=== PATIENT | female | born 1980 | race Caucasian/White ===

== ENCOUNTER 2019-11-03 09:20 | Inpatient (IN) | payer BC ==
[2019-11-03] MEDS ORDERED: SODIUM CHLORIDE 0.9% 500 ML 500 ML IV STA (09:42)
--- NOTE | 2019-11-03 09:46 | ED ---
General Adult HPI - General Chief complaint: Arrhythmia/Palpitations Stated complaint: palpitations Time Seen by Provider: 11/03/19 09:25 Source: patient, RN notes reviewed, old records reviewed Mode of arrival: ambulatory Limitations: no limitations - History of Present Illness Initial comments: This is a 39-year-old female who presents emergency department with past medical history significant for sick sinus syndrome possibly some atrial fibrillation and a pacemaker in place. Patient states last night she started waking up realizing her heart rate was in the 130s to 140s. Patient states range and she felt short of breath and couldn't feel her chest pounding. Patient states currently she is asymptomatic. Patient denies any headache patient denies numbness weakness. Patient denies lightheadedness or dizziness. Patient denies any abdominal pain patient denies nausea vomiting diarrhea. Patient denies any chest pain whatsoever she can just feel her heart racing. - Related Data Home Medications Medication Instructions Recorded Confirmed Aspirin EC [Ecotrin Low Dose] 81 mg PO HS 11/03/19 11/03/19 Cholecalciferol [Vitamin D3 (25 1,000 unit PO HS 11/03/19 11/03/19 Mcg = 1000 Iu)] Losartan [Cozaar] 50 mg PO HS 11/03/19 11/03/19 Multivitamins, Thera [Multivitamin 1 tab PO HS 11/03/19 11/03/19 (formulary)] Spironolactone 50 mg PO HS 11/03/19 11/03/19 Zolpidem [Ambien] 10 mg PO HS PRN 11/03/19 11/03/19 estradioL [Divigel] 1 packet TRANSDERM HS 11/03/19 11/03/19 Allergies Allergy/AdvReac Type Severity Reaction Status Date / Time Iodinated Contrast Media Allergy Anaphylaxis Verified 11/03/19 10:41 Review of Systems ROS Statement: Those systems with pertinent positive or pertinent negative responses have been documented in the HPI. ROS Other: All systems not noted in ROS Statement are negative. Past Medical History Past Medical History: Chest Pain / Angina, Hypertension Additional Past Medical History / Comment(s): sick sinus syndrome History of Any Multi-Drug Resistant Organisms: None Reported Past Surgical History: Appendectomy, Cholecystectomy, Hysterectomy, Pacemaker Additional Past Surgical History / Comment(s): HEART Ablation Past Psychological History: No Psychological Hx Reported Smoking Status: Never smoker Past Alcohol Use History: None Reported Past Drug Use History: None Reported General Exam - General Exam Comments Initial Comments: GENERAL: Patient is well-developed and well-nourished. Patient is nontoxic and well- hydrated and is in mild distress. ENT: Neck is soft and supple. No significant lymphadenopathy is noted. Oropharynx i s clear. Moist mucous membranes. Neck has full range of motion without eliciting any pain. EYES: The sclera were anicteric and conjunctiva were pink and moist. Extraocular movements were intact and pupils were equal round and reactive to light. Eyelids were unremarkable. PULMONARY: Unlabored respirations. Good breath sounds bilaterally. No audible rales rhonchi or wheezing was noted. CARDIOVASCULAR: There is a regular rate and rhythm without any murmurs gallops or rubs. ABDOMEN: Soft and nontender with normal bowel sounds. SKIN: Skin is clear with no lesions or rashes and otherwise unremarkable. NEUROLOGIC: Patient is alert and oriented x3. Cranial nerves II through XII are grossly intact. Motor and sensory are also intact. Normal speech, volume and content. Symmetrical smile. MUSCULOSKELETAL: Normal extremities with adequate strength and full range of motion. No lower extremity swelling or edema. No calf tenderness. LYMPHATICS: No significant lymphadenopathy is noted PSYCHIATRIC: Normal psychiatric evaluation. 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 Patient's EKG shows no ST segment elevation or depre ssion. Repeat EKG was done with the patient's heart rate went up to 140. EKG showed atrial fibrillation at a rate of 130 bpm QRS is 70 QT interval 288 QTC is 436 per patient's EKG shows no ST segment elevation or depression. Chest x-ray shows no acute abnormality. I attempted to call her senior management consultant Dr. Domenic greer at [facility] but we got no response. At this point time the patient did agree to be admitted to the hospital. Patient was placed on a Cardizem drip after Cardizem bolus. Patient was also given heparin. I spoke with Dr. Kelly he agreed to admit her admitted I wrote admitting orders and I continue the heparin and Cardizem on the floor - Lab Data Result diagrams: 11/03/19 09:58 11/03/19 09:58 Lab Results 11/03/19 11/03/19 11/03/19 Range/Units 09:58 09:58 09:58 WBC 9.2 (3.8-10.6) k/uL RBC 5.70 H (3.80-5.40) m/uL Hgb 15.7 (11.4-16.0) gm/dL Hct 46.2 H (34.0-46.0) % MCV 80.9 (80.0-100.0) fL MCH 27.5 (25.0-35.0) pg MCHC 34.0 (31.0-37.0) g/dL RDW 13.5 (11.5-15.5) % Plt Count 271 (150-450) k/uL Neutrophils % 66 % Lymphocytes % 25 % Monocytes % 4 % Eosinophils % 3 % Basophils % 1 % Neutrophils # 6.1 (1.3-7.7) k/uL Lymphocytes # 2.3 (1.0-4.8) k/uL Monocytes # 0.4 (0-1.0) k/uL Eosinophils # 0.3 (0-0.7) k/uL Basophils # 0.1 (0-0.2) k/uL PT 9.8 (9.0-12.0) sec INR 0.9 (<1.2) APTT 25.9 (22.0-30.0) sec Sodium 140 (137-145) mmol/L Potassium 4.2 (3.5-5.1) mmol/L Chloride 104 (98-107) mmol/L Carbon Dioxide 26 (22-30) mmol/L Anion Gap 10 mmol/L BUN 11 (7-17) mg/dL Creatinine 0.74 (0.52-1.04) mg/dL Est GFR (CKD-EPI)AfAm >90 (>60 ml/min/1.73 sqM) Est GFR (CKD-EPI)NonAf >90 (>60 ml/min/1.73 sqM) Glucose 115 H (74-99) mg/dL Calcium 9.9 (8.4-10.2) mg/dL Magnesium 2.0 (1.6-2.3) mg/dL Total Bilirubin 0.8 (0.2-1.3) mg/dL AST 37 H (14-36) U/L ALT 36 H (4-34) U/L Alkaline Phosphatase 74 (38-126) U/L Troponin I (0.000-0.034) ng/mL Total Protein 8.1 (6.3-8.2) g/dL Albumin 4.8 (3.5-5.0) g/dL TSH 2.200 (0.465-4.680) mIU/L 11/03/19 Range/Units 09:58 WBC (3.8-10.6) k/uL RBC (3.80-5.40) m/uL Hgb (11.4-16.0) gm/dL Hct (34.0-46.0) % MCV (80.0-100.0) fL MCH (25.0-35.0) pg MCHC (31.0-37.0) g/dL RDW (11.5-15.5) % Plt Count (150-450) k/uL Neutrophils % % Lymphocytes % % Monocytes % % Eosinophils % % Basophils % % Neutrophils # (1.3-7.7) k/uL Lymphocytes # (1.0-4.8) k/uL Monocytes # (0-1.0) k/uL Eosinophils # (0-0.7) k/uL Basophils # (0-0.2) k/uL PT (9.0-12.0) sec INR (<1.2) APTT (22.0-30.0) sec Sodium (137-145) mmol/L Potassium (3.5-5.1) mmol/L Chloride (98-107) mmol/L Carbon Dioxide (22-30) mmol/L Anion Gap mmol/L BUN (7-17) mg/dL Creatinine (0.52-1.04) mg/dL Est GFR (CKD-EPI)AfAm (>60 ml/min/1.73 sqM) Est GFR (CKD-EPI)NonAf (>60 ml/min/1.73 sqM) Glucose (74-99) mg/dL Calcium (8.4-10.2) mg/dL Magnesium (1.6-2.3) mg/dL Total Bilirubin (0.2-1.3) mg/dL AST (14-36) U/L ALT (4-34) U/L Alkaline Phosphatase (38-126) U/L Troponin I <0.012 (0.000-0.034) ng/mL Total Protein (6.3-8.2) g/dL Albumin (3.5-5.0) g/dL TSH (0.465-4.680) mIU/L Critical Care Time Critical Care Time: Yes Total Critical Care Time: 35 Disposition Clinical Impression: Atrial fibrillation with rapid ventricular response Disposition: ADMITTED IP TO THIS [facility] Referrals: Gaurav Kelly DO [Primary Care Provider] - 1-2 days Time of Disposition: 12:57
[2019-11-03 10:10] LABS: Basophils # (A) 0.1 k/uL (0-0.2); Basophils % (A) 1 %; Eosinophils # (A) 0.3 k/uL (0-0.7); Eosinophils % (A) 3 %; HCT 46.2 % (34.0-46.0); HGB 15.7 gm/dL (11.4-16.0); Lymphocytes # (A) 2.3 k/uL (1.0-4.8); Lymphocytes % (A) 25 %; MCH 27.5 pg (25.0-35.0); MCV 80.9 fL (80.0-100.0); Mean Platelet Volume 6.7; Monocytes # (A) 0.4 k/uL (0-1.0); Monocytes % (A) 4 %; Neutrophils # (A) 6.1 k/uL (1.3-7.7); Neutrophils % (A) 66 %; Platelet Count 271 k/uL (150-450); RDW 13.5 % (11.5-15.5); WBC 9.2 k/uL (3.8-10.6)
[2019-11-03] MEDS ORDERED: DILTIAZEM DRIP BOLUS FROM BAG 1 MG SOLN IV ONE ×2 (10:13→13:06)
[2019-11-03] MEDS ORDERED: DILTIAZEM 125 MG in SODIUM CHLORIDE 0.9% 100 ML IV SCH (10:15)
[2019-11-03 10:18] LABS: INR 0.9 (<1.2); Partial Thromboplastin Time 25.9 sec (22.0-30.0); Prothrombin Time 9.8 sec (9.0-12.0)
--- NOTE | 2019-11-03 10:20 | XR ---
EXAMINATION TYPE: XR chest 2V DATE OF EXAM: 11/03/2019 COMPARISON: Prior chest x-ray 06/08/2010 HISTORY: Dysrhythmia TECHNIQUE: Frontal and lateral views of the chest are obtained. FINDINGS: There is no focal air space opacity, pleural effusion, or pneumothorax seen. The cardiac silhouette size is within normal limits. The osseous structures are intact. There is a generator in the left pectoral region, leads are present in the right atrium and ventricle. Surgical clips presen t right upper quadrant. IMPRESSION: No acute cardiopulmonary process.
[2019-11-03 10:30] LABS: ALT 36 U/L (4-34); AST 37 U/L (14-36); African American GFR (CKD) >90 (>60 ml/min/1.73 sqM); Albumin 4.8 g/dL (3.5-5.0); Alkaline Phosphatase 74 U/L (38-126); Anion Gap 10 mmol/L; Blood Urea Nitrogen 11 mg/dL (7-17); Calcium 9.9 mg/dL (8.4-10.2); Carbon Dioxide 26 mmol/L (22-30); Chloride 104 mmol/L (98-107); Glucose 115 mg/dL (74-99); Non-African American GFR(CKD) >90 (>60 ml/min/1.73 sqM); Potassium 4.2 mmol/L (3.5-5.1); Sodium 140 mmol/L (137-145); Total Bilirubin 0.8 mg/dL (0.2-1.3); Total Protein 8.1 g/dL (6.3-8.2)
[2019-11-03] MEDS ORDERED: HEPARIN SODIUM,PORCINE 5,000 UNIT/ML 1 ML VIAL IV ONE (12:57)
[2019-11-03] MEDS ORDERED: NITROGLYCERIN SL TABS 0.4 MG TAB SUBLINGUAL PRN (12:58)
[2019-11-03] MEDS ORDERED: HEPARIN SOD,PORK IN 0.45% NACL 25,000 UNIT in 0.45% NACL 1 250ML.BAG IV SCH (13:00)
[2019-11-03] MEDS: SPIRONOLACTONE 25 MG TAB PO SCH (21:11)
[2019-11-03] MEDS: LOSARTAN 25 MG TAB PO SCH (21:11)
[2019-11-03] MEDS: ZOLPIDEM 5 MG TAB PO PRN (23:17)
[2019-11-03 23:22] LABS: Cholesterol 217 mg/dL (<200); HDL Cholesterol 31 mg/dL (40-60); Triglycerides 428 mg/dL (<150)
[2019-11-04] MEDS ORDERED: ASPIRIN 81 MG PO SCH (09:00)
[2019-11-04] MEDS ORDERED: ASPIRIN 325 MG TAB PO SCH (09:00)
[2019-11-04] MEDS: VERAPAMIL 40 MG TAB PO SCH ×3 (09:10→21:01)
[2019-11-04] MEDS: APIXABAN 5 MG TAB PO SCH ×2 (09:11→21:01)
--- NOTE | 2019-11-04 10:55 | P.CRDCN ---
History of Present Illness Consult date: 11/04/19 Consult reason: atrial fibrillation Chief complaint: Chest pressure and heart racing History of present illness: This is a pleasant 39-year-old female with documented history of SVT with prior ablation 3, pacemaker implantation for sick sinus syndrome, hypertension, paroxysmal atrial fibrillation. She presents to the hospital on this occasion with symptoms of chest pressure and a pressure and discomfort be tween her scapula area with associated heart racing. She also states that she felt quite short of breath. Chest x-ray on presentation here did not reveal any acute process. Her EKG showed atrial fibrillation with a rapid ventricular response. This morning's EKG shows A. fib/flutter with mildly rapid ventricular response. Blood pressure 112/70 with a heart rate low 100s, white blood cell count 9.2, hemoglobin 15.2, platelet count 277. Sodium 140, potassium 4.2, BUN 11, creatinine 0.7. Troponins 0.0123 cholesterol 217 triglycerides 428 HDL 31 LDL not calculable TSH is 2.2. Patient's home medications include estradiol, Cozaar,, and Aldactone. According to the patient, she had a Holter monitor performed at her physician's office and at that time was told to have paroxysmal episodes of atrial fibrillation. She is not currently on anticoagulation. Her CHADSVASC score is 2. I did have a lengthy discussion with the patient this morning regarding anticoagulation for stroke prevention although her score is two on the chadsvasc. Our recommendation is to initiate anticoagulation at this time. We will also obtain an echocardiogram with Doppler study, discontinue the IV Cardizem and start the patient on oral calcium channel chino. Patient also states that she had a stress test within the past one year which we will obtained from her doctor's office. Pacemaker was interrogated, showed several episodes of rapid atrial fibrillation, it also shows several times where mode sw itching with attempt to override the rapid heart beat was also documented. Past Medical History Past Medical History: Atrial Fibrillation, Chest Pain / Angina, Hypertension, Supraventricular Tachycardia (SVT) Additional Past Medical History / Comment(s): sick sinus syndrome/pacer, paroxysmal Afib, pt states her heart rate decreases with exertion, chest pain associated with bradycardia/tachycardia, History of Any Multi-Drug Resistant Organisms: None Reported Past Surgical History: Appendectomy, Cardiac Ablation, Cholecystectomy, Hysterectomy, Pacemaker Additional Past Surgical History / Comment(s): Cardiac ablation x3 for SVT- unsuccessful per pt, pacemaker 2010 at [facility] D&, laparoscopies, colonoscopy. Past Anesthesia/Blood Transfusion Reactions: No Reported Reaction, Motion Sickness Type of Cardiac Device: Permanent Pacemaker Device Placement Date:: 2009 Smoking Status: Never smoker - Past Family History Father Family Medical History: Coronary Artery Disease (CAD) Additional Family Medical History / Comment(s): Father at 58 yrs from a blood clot-pt unable to recall specifics at this time. He had CABG. Mother Family Medical History: Diabetes Mellitus, Renal Disease Additional Family Medical History / Comment(s): Mother is . Medications and Allergies Home Medications Medication Instructions Recorded Confirmed Type Aspirin EC [Ecotrin Low Dose] 81 mg PO HS 11/03/19 11/03/19 History Cholecalciferol [Vitamin D3 (25 1,000 unit PO HS 11/03/19 11/03/19 History Mcg = 1000 Iu)] Losartan [Cozaar] 50 mg PO HS 11/03/19 11/03/19 History Multivitamins, Thera [Multivitamin 1 tab PO HS 11/03/19 11/03/19 History (formulary)] Spironolactone 50 mg PO HS 11/03/19 11/03/19 History Zolpidem [Ambien] 10 mg PO HS PRN 11/03/19 11/03/19 History estradioL [Divigel] 1 packet TRANSDERM HS 11/03/19 11/03/19 History Allergies Allergy/AdvReac Type Severity Reaction Status Date / Time Iodinated Contrast Media Allergy Anaphylaxis Verified 11/03/19 10:41 Physical Exam Vitals: Vital Signs Temp Pulse Pulse Resp BP BP BP 11/04/19 09:10 98.1 F 71 17 102/68 11/04/19 03:45 97.8 F 71 17 112/71 11/04/19 00:00 98.2 F 94 17 127/83 11/03/19 20:00 98.1 F 129 H 17 110/80 11/03/19 16:00 98.6 F 106 H 18 130/87 11/03/19 12:25 138 H 19 134/96 11/03/19 11:14 93 16 136/87 BP BP Pulse Ox 11/04/19 09:10 111/81 97/70 93 L 11/04/19 03:45 96 11/04/19 00:00 99 11/03/19 20:00 98 11/03/19 16:00 96 11/03/19 12:25 98 11/03/19 11:14 100 Intake and Output 11/03/19 11/04/19 11/04/19 22:59 06:59 14:59 Intake Total 130.334 Balance 130.334 Intake: Intake, IV Titration 130.334 Amount Diltiazem 125 mg In 52.667 Sodium Chloride 0.9% 100 ml @ 10 MG/HR 10 mls/hr IV .[id number] SANTOS Rx#: [id number] Heparin Sod,Pork in 0.45% 77.667 NaCl 25,000 unit In 0.45 % NaCl 1 250ml.bag @ 10. 65 UNITS/KG/HR 10 mls/hr IV .Q24H SANTOS Rx#: [id number] Other: # Voids 1 1 Weight 93.894 kg 93.8 kg PHYSICAL EXAMINATION: GENERAL: 39-year-old female in no acute distress at the time of my examination HEENT: Head is atraumatic, normocephalic. Pupils equal, round. Sclera anicteric. Conjunctiva are clear. Mucous membranes of the mouth are moist. Neck is supple. There is no elevated jugular venous pressure. No carotid bruit is heard. HEART EXAMINATION: Heart S1, S2 irregularly irregular . No murmur or gallop heard. CHEST EXAMINATION: Lungs are clear to auscultation and precussion. No chest wall tenderness is noted on palpation or with deep breathing. ABDOMEN: Soft, nontender. Bowel sounds are heard. No organomegaly noted. EXTREMITIES: 2+ peripheral pulses with no evidence of peripheral edema and no calf tenderness noted. NEUROLOGIC patient is awake, alert and oriented 3 . Results 11/03/19 09:58 11/03/19 09:58 Cardiac Enzymes 11/03/19 11/03/19 Range/Units 14:01 17:36 Troponin I <0.012 0.032 (0.000-0.034) ng/mL Coagulation 11/03/19 11/04/19 Range/Units 20:28 02:47 APTT 36.3 H 53.0 H (22.0-30.0) sec Lipids 11/03/19 Range/Units 09:58 Triglycerides 428 H (<150) mg/dL Cholesterol 217 H (<200) mg/dL HDL Cholesterol 31 L (40-60) mg/dL Current Medications Generic Name Dose Route Start Last Admin Trade Name Freq PRN Reason Stop Dose Admin Apixaban 5 mg 11/04/19 09:00 11/04/19 09:11 Apixaban 5 Mg Tab PO 5 mg BID SANTOS Administration Losartan Potassium 50 mg 11/03/19 21:15 11/03/19 21:11 Losartan 25 Mg Tab PO 50 mg HS SANTOS Administration Nitroglycerin 0.4 mg 11/03/19 12:58 Nitroglycerin Sl Tabs 0.4 Mg Tab SUBLINGUAL Q5M PRN Chest Pain Estradiol [Divigel] 1 packet 11/04/19 21:00 1 Gm Gel.Packet TOPICAL HS SANTOS Spironolactone 50 mg 11/03/19 21:15 11/03/19 21:11 Spironolactone 25 Mg Tab PO 50 mg HS SANTOS Administration Verapamil HCl 40 mg 11/04/19 09:00 11/04/19 09:10 Verapamil 40 Mg Tab PO 40 mg TID SANTOS Administration Zolpidem Tartrate 10 mg 11/03/19 21:03 11/03/19 23:17 Zolpidem 5 Mg Tab PO 10 mg HS PRN Administration Insomnia Intake and Output 11/03/19 11/04/19 11/04/19 22:59 06:59 14:59 Intake Total 130.334 Balance 130.334 Intake: Intake, IV Titration 130.334 Amount Diltiazem 125 mg In 52.667 Sodium Chloride 0.9% 100 ml @ 10 MG/HR 10 mls/hr IV .[id number] SANTOS Rx#: [id number] Heparin Sod,Pork in 0.45% 77.667 NaCl 25,000 unit In 0.45 % NaCl 1 250ml.bag @ 10. 65 UNITS/KG/HR 10 mls/hr IV .Q24H SANTOS Rx#: [id number] Other: # Voids 1 1 Weight 93.894 kg 93.8 kg 11/03/19 09:58 11/03/19 09:58 EKG Interpretations (text) EKG shows atrial fibrillation with a rapid ventricular response Assessment and Plan Plan: Assessment and plan #1 atrial fibrillation with rapid ventricular response, paroxysmal #2 hypertension #3 hyperlipidemia, untreated #4 history of SVT with prior ablation procedure 3 #5 history of permanent pacemaker implantation for sick sinus syndrome Plan We have obtained a TSH level which came back to be normal. We will obtain an echocardiogram with Doppler study, discontinue the IV Cardizem and started on oral calcium channel chino. Patient has also been educated regarding anticoagulation, her chadsvasc Score is 2. She is in agreement to initiate oral anticoagulation. We will obtain records from her carbide powder processor, Dr. Sheth at [facility]. Further recommendations to follow. DNP note has been reviewed, I agree with a documented findings and plan of care. Patient was seen and examined.
--- NOTE | 2019-11-04 12:29 | P.HPIM ---
History of Present Illness H&P Date: 11/04/19 Chief Complaint: palpitations This is a pleasant 39-year-old female with past medical history of sick sinus syndrome, permanent pacemaker implantation, paroxysmal A. fib, multiple cardiac ablations ,hypertension, SVT, presented to the ER with complaints of heart racing, palpitations accompanied by shortness of breath. Denies lightheadedness, dizziness or focal deficits. Denies syncope. Denies nausea vomiting or diarrhea. Denies abdominal pain. Denies any fever or chills. Denies any cough or congestion. Chest x-ray reported no acute cardiopulmonary process. EKG reported atrial fibrillation with RVR, ST abnormality, heart rate 138. Blood pressure initially 154/114 .Troponins negative 3. Negative for orthostatic hypotension. afebrile, normal WBC. Electrolytes within normal limits. Triglycerides 428, cholesterol 217, HDL 31. Minimally elevated AST, AL T. TSH within normal limits. Placed on heparin and Cardizem drips, cardiology consulted. Review of Systems ROS Statement: Those systems with pertinent positive or pertinent negative responses have been documented in the HPI. ROS Other: All systems not noted in ROS Statement are negative. Past Medical History Past Medical History: Atrial Fibrillation, Chest Pain / Angina, Hypertension, Supraventricular Tachycardia (SVT) Additional Past Medical History / Comment(s): sick sinus syndrome/pacer, paroxysmal Afib, pt states her heart rate decreases with exertion, chest pain associated with bradycardia/tachycardia, History of Any Multi-Drug Resistant Organisms: None Reported Past Surgical History: Appendectomy, Cardiac Ablation, Cholecystectomy, Hysterectomy, Pacemaker Additional Past Surgical History / Comment(s): Cardiac ablation x3 for SVT- unsuccessful per pt, pacemaker 2010 at [facility] D&, laparoscopies, colonoscopy. Past Anesthesia/Blood Transfusion Reactions: No Reported Reaction, Motion Sickness Type of Cardiac Device: Permanent Pacemaker Device Placement Date:: 2009 Smoking Status: Never smoker - Past Family History Father Family Medical History: Coronary Artery Disease (CAD) Additional Family Medical History / Comment(s): Father at 58 yrs from a blood clot-pt unable to recall specifics at this time. He had CABG. Mother Family Medical History: Diabetes Mellitus, Renal Disease Additional Family Medical History / Comment(s): Mother is . Medications and Allergies Home Medications Medication Instructions Recorded Confirmed Type Aspirin EC [Ecotrin Low Dose] 81 mg PO HS 11/03/19 11/03/19 History Cholecalciferol [Vitamin D3 (25 1,000 unit PO HS 11/03/19 11/03/19 History Mcg = 1000 Iu)] Losartan [Cozaar] 50 mg PO HS 11/03/19 11/03/19 History Multivitamins, Thera [Multivitamin 1 tab PO HS 11/03/19 11/03/19 History (formulary)] Spironolactone 50 mg PO HS 11/03/19 11/03/19 History Zolpidem [Ambien] 10 mg PO HS PRN 11/03/19 11/03/19 History estradioL [Divigel] 1 packet TRANSDERM HS 11/03/19 11/03/19 History Allergies Allergy/AdvReac Type Severity Reaction Status Date / Time Iodinated Contrast Media Allergy Anaphylaxis Verified 11/03/19 10:41 Physical Exam Vitals: Vital Signs Temp Pulse Pulse Resp BP BP Pulse Ox 11/04/19 03:45 97.8 F 71 17 112/71 96 11/04/19 00:00 98.2 F 94 17 127/83 99 11/03/19 20:00 98.1 F 129 H 17 110/80 98 11/03/19 16:00 98.6 F 106 H 18 130/87 96 11/03/19 12:25 138 H 19 134/96 98 11/03/19 11:14 93 16 136/87 100 11/03/19 10:40 107 H 16 124/90 100 11/03/19 09:53 103 H 11/03/19 09:25 97.4 F L 117 H 18 154/114 100 Intake and Output 11/03/19 11/04/19 11/04/19 22:59 06:59 14:59 Intake Total 130.334 Balance 130.334 Intake: Intake, IV Titration 130.334 Amount Diltiazem 125 mg In 52.667 Sodium Chloride 0.9% 100 ml @ 10 MG/HR 10 mls/hr IV .[id number] SANTOS Rx#: [id number] Heparin Sod,Pork in 0.45% 77.667 NaCl 25,000 unit In 0.45 % NaCl 1 250ml.bag @ 10. 65 UNITS/KG/HR 10 mls/hr IV .Q24H SANTOS Rx#: [id number] Other: # Voids 1 1 Weight 93.894 kg 93.8 kg PHYSICAL EXAM: VITAL SIGNS: As above GENERAL: Sitting up in bed, no acute distress HEENT: Conjunctivae normal. eyes normal. NECK: No JVD. No thyroid enlargement. No LNs CARDIOVASCULAR: S1, S2 regular. No murmur RESPIRATION: Breath sounds diminished in the bases. No rhonchi or crackles. No bronchial breathing. ABDOMEN: Soft, nontender . No guarding. no masses palpable. No ascites, No hepatosplenomegaly.Bowel sounds heard. LEGS: No edema. no swelling PSYCHIATRY: Alert and oriented X3, mood and affect normal. NERVOUS SYSTEM: Cranial N 2-12 grossly normal. Moves all 4 limbs. No focal deficits. Strength and sensation grossly intact.. Skin: Warm and dry, no rash Lymphatic system. No LN neck axilla. Results CBC & Chem 7: 11/03/19 09:58 11/03/19 09:58 Labs: Abnormal Lab Results - Last 24 Hours (Table) 11/03/19 11/03/19 11/03/19 Range/Units 09:58 09:58 09:58 RBC 5.70 H (3.80-5.40) m/uL Hct 46.2 H (34.0-46.0) % APTT (22.0-30.0) sec Glucose 115 H (74-99) mg/dL AST 37 H (14-36) U/L ALT 36 H (4-34) U/L Triglycerides 428 H (<150) mg/dL Cholesterol 217 H (<200) mg/dL HDL Cholesterol 31 L (40-60) mg/dL 11/03/19 11/04/19 Range/Units 20:28 02:47 RBC (3.80-5.40) m/uL Hct (34.0-46.0) % APTT 36.3 H 53.0 H (22.0-30.0) sec Glucose (74-99) mg/dL AST (14-36) U/L ALT (4-34) U/L Triglycerides (<150) mg/dL Cholesterol (<200) mg/dL HDL Cholesterol (40-60) mg/dL Thrombosis Risk Factor Assmnt - Choose All That Apply Any of the Below Risk Factors Present?: Yes Each Factor Represents 1 point: Age 41-60 years, Obesity (BMI >25) Other Risk Factors: No Other congenital or acquired thrombophilia - If yes, enter type in comment: No Thrombosis Risk Factor Assessment Total Risk Factor Score: 2 Thrombosis Risk Factor Assessment Level: Low Risk Assessment and Plan Assessment: Atrial fibrillation with RVR in a patient with history of chronic paroxysmal atrial fibrillation Sick sinus syndrome with hx of PPM History of SVT with multiple ablations Hypertension Hyperlipidemia Plan: Continue on current medication regime ,monitoring and symptomatic treatment. Pacemaker interrogation and echo pending. Cardiology consult in place, recommendations noted and appreciated.Antiarrhythmics converted to oral verapamil. Anticoagulation as per cardiology. Patient follows with [facility], Dr. Sheth. The impression and plan of care has been dictated as directed. : I performed a history and examination of this patient, discussed the same with the dictator. I agree with the dictator's note ,documented as a scribe. Any additional findings or plans will be noted.
[2019-11-04] MEDS: ESTRADIOL TOPICAL SCH (19:58)
[2019-11-04] MEDS: SPIRONOLACTONE 25 MG TAB PO SCH (21:01)
[2019-11-04] MEDS: LOSARTAN 25 MG TAB PO SCH (21:01)
[2019-11-05] MEDS: VERAPAMIL 40 MG TAB PO SCH (06:23)
[2019-11-05 08:12] LABS: Basophils # (A) 0.1 k/uL (0-0.2); Basophils % (A) 1 %; Eosinophils # (A) 0.3 k/uL (0-0.7); Eosinophils % (A) 3 %; HCT 46.9 % (34.0-46.0); HGB 16.2 gm/dL (11.4-16.0); Lymphocytes # (A) 2.8 k/uL (1.0-4.8); Lymphocytes % (A) 29 %; MCH 28.7 pg (25.0-35.0); MCHC 34.5 g/dL (31.0-37.0); Mean Platelet Volume 6.8; Monocytes # (A) 0.5 k/uL (0-1.0); Monocytes % (A) 5 %; Neutrophils # (A) 6.1 k/uL (1.3-7.7); Neutrophils % (A) 62 %; Platelet Count 317 k/uL (150-450); RBC 5.66 m/uL (3.80-5.40); RDW 13.6 % (11.5-15.5); WBC 9.8 k/uL (3.8-10.6)
[2019-11-05] MEDS ORDERED: DEXTROSE 5% IN WATER 100 ML with AMIODARONE 150 MG IV ONE (08:15)
[2019-11-05] MEDS ORDERED: AMIODARONE 360 MG in DEXTROSE 5% IN WATER 200 ML IV ONE ×2 (08:25)
[2019-11-05 08:32] LABS: African American GFR (CKD) >90 (>60 ml/min/1.73 sqM); Anion Gap 9 mmol/L; Blood Urea Nitrogen 14 mg/dL (7-17); Carbon Dioxide 28 mmol/L (22-30); Chloride 102 mmol/L (98-107); Glucose 108 mg/dL (74-99); Non-African American GFR(CKD) 88 (>60 ml/min/1.73 sqM); Potassium 4.4 mmol/L (3.5-5.1); Sodium 139 mmol/L (137-145)
[2019-11-05] MEDS ORDERED: METOPROLOL TARTRATE 5 MG/5 ML VIAL IVP ONE (08:47)
[2019-11-05] MEDS ORDERED: METOPROLOL TARTRATE 5 MG/5 ML VIAL IVP STA (08:49)
[2019-11-05] MEDS ORDERED: SODIUM CHLORIDE 0.9% 1,000 ML IV SCH (09:00)
[2019-11-05] MEDS: METOPROLOL TARTRATE 25 MG TAB PO SCH ×2 (09:18→21:18)
[2019-11-05] MEDS: APIXABAN 5 MG TAB PO SCH ×2 (09:59→21:19)
--- NOTE | 2019-11-05 10:18 | P.PN ---
Subjective Progress Note Date: 11/05/19 This is a pleasant 39-year-old female with past medical history of sick sinus syndrome, permanent pacemaker implantation, paroxysmal A. fib, multiple cardiac ablations ,hypertension, SVT, presented to the ER with complaints of heart racing, palpitations accompanied by shortness of breath. Denies lighthea dedness, dizziness or focal deficits. Denies syncope. Denies nausea vomiting or diarrhea. Denies abdominal pain. Denies any fever or chills. Denies any cough or congestion. Chest x-ray reported no acute cardiopulmonary process. EKG reported atrial fibrillation with RVR, ST abnormality, heart rate 138. Blood pressure initially 154/114 .Troponins negative 3. Negative for orthostatic hypotension. afebrile, normal WBC. Electrolytes within normal limits. Triglycerides 428, cholesterol 217, HDL 31. Minimally elevated AST, ALT. TSH within normal limits. Placed on heparin and Cardizem drips, cardiology consulted. 11/05/2019 throughout the night and this morning having uncontrolled A- flutter. This morning, A flutter with heart rate in the 140s, received Lopressor IV push, bolused with amiodarone, developed chest pain with shortness of breath and amiodarone drip discontinued. Scheduled for cardioversion and FRANCIS this morning. Objective - Vital Signs Vital signs: Vital Signs Temp 98.2 F 11/05/19 04:00 Pulse 96 11/05/19 04:00 Resp 17 11/05/19 04:00 BP 135/94 11/05/19 04:00 Pulse Ox 100 11/05/19 04:00 Intake & Output 11/04/19 11/05/19 11/05/19 18:59 06:59 18:59 Intake Total 340 Balance 340 Weight 93.9 kg Intake: Oral 340 Other: # Voids 3 2 - Exam VITAL SIGNS: As above GENERAL: Sitting up in chair, no acute distress HEENT: Conjunctivae normal. eyes normal. NECK: No JVD. No thyroid enlargement. No LNs CARDIOVASCULAR: S1, S2 regular. No murmur RESPIRATION: Breath sounds diminished in the bases. No rhonchi , crackles or wheezing. ABDOMEN: Soft, nontender . No guarding. no masses palpable. Positive Bowel sounds. LEGS: No edema. no swelling. No calf tenderness. PSYCHIATRY: Alert and oriented X3, mood and affect normal. NERVOUS SYSTEM: Cranial N 2-12 grossly normal. Moves all 4 limbs. No focal deficits. Strength and sensation grossly intact.. Skin: Warm and dry, no rash - Labs CBC & Chem 7: 11/05/19 07:24 11/05/19 07:24 Labs: Abnormal Lab Results - Last 24 Hours (Table) 11/05/19 11/05/19 Range/Units 07:24 07:24 RBC 5.66 H (3.80-5.40) m/uL Hgb 16.2 H (11.4-16.0) gm/dL Hct 46.9 H (34.0-46.0) % Glucose 108 H (74-99) mg/dL Assessment and Plan Assessment: Atrial fibrillation, flutter with RVR in a patient with history of chronic paroxysmal atrial fibrillation, Sick sinus syndrome with hx of PPM History of SVT with multiple ablations Hypertension Hyperlipidemia Plan: Continue on current medication regime ,monitoring and symptomatic treatment. Cardioversion and FRANCIS pending. Echo completed, results pending. Follow closely with cardiology. The impression and plan of care has been dictated as directed. : I performed a history and examination of this patient, discussed the same with the dictator. I agree with the dictator's note ,documented as a scribe. Any additional findings or plans will be noted.
[2019-11-05] MEDS ORDERED: IV FLUID CONTINUATION 1,000 ML IV ONE ×2 (10:55)
[2019-11-05] MEDS ORDERED: LIDOCAINE 1% INJ 10MG/ML (20 ML MDV) ONE (11:07)
[2019-11-05] MEDS ORDERED: PROPOFOL 10 MG/ML 50 ML VIAL IV ONE (11:07)
[2019-11-05] MEDS: BENZOCAINE SPRAY 1 CAN MUCOUS MEM ONE ×2 (11:12→11:15)
--- NOTE | 2019-11-05 11:51 | P.PN ---
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 She was found to be in atrial fibrillation with RVR. Medical treatment was tried without any significant improvement. The patient is going to undergo a cardioversion along with FRANCIS later on today. The procedure in details was explained to her. Meanwhile we will continue the current medical regimen including oral anticoagulation. Objective - Vital Signs Vital signs: Vital Signs Temp 97.4 F L 11/05/19 11:22 Pulse 61 11/05/19 11:37 Resp 16 11/05/19 11:37 BP 114/74 11/05/19 11:37 Pulse Ox 99 11/05/19 11:37 Intake & Output 11/04/19 11/05/19 11/05/19 18:59 06:59 18:59 Intake Total 340 250 Balance 340 250 Weight 93.9 kg Intake: IV 250 Oral 340 Other: # Voids 3 2 - Constitutional General appearance: Present: no acute distress - Respiratory Respiratory: bilateral: CTA - Cardiovascular Rhythm: irregularly irregular Heart sounds: normal: S1, S2 - Labs CBC & Chem 7: 11/05/19 07:24 11/05/19 07:24 Labs: Abnormal Lab Results - Last 24 Hours (Table) 11/05/19 11/05/19 Range/Units 07:24 07:24 RBC 5.66 H (3.80-5.40) m/uL Hgb 16.2 H (11.4-16.0) gm/dL Hct 46.9 H (34.0-46.0) % Glucose 108 H (74-99) mg/dL Assessment and Plan Assessment: Assessment #1 atrial fibrillation with RVR. #2 known paroxysmal atrial fibrillation #3 permanent pacemaker #4 multiple comorbid conditions Plan #1 proceed with a FRANCIS and cardioversion #2 continue the current medical regimen #3 continue oral anticoagulation
--- NOTE | 2019-11-05 12:19 | ECHOF ---
Referral Reason:afib MEASUREMENTS -------- HEIGHT: 162.6 cm WEIGHT: 93.4 kg BP: 112/71 RVIDd: 3.2 cm (< 3.3) IVSd: 1.2 cm (0.6 - 1.1) LVIDd: 3.8 cm (3.9 - 5.3) LVPWd: 1.1 cm (0.6 - 1.1) IVSs: 1.7 cm LVIDs: 2.3 cm LVPWs: 1.5 cm LA Diam: 3.1 cm (2.7 - 3.8) LAESV Index (A-L): 17.03 ml/m Ao Diam: 3.1 cm (2.0 - 3.7) AV Cusp: 2.1 cm (1.5 - 2.6) MV EXCURSION: 16.269 mm (> 18.000) MV EF SLOPE: 64 mm/s (70 - 150) EPSS: 0.6 cm MV E Jose Martin: 0.84 m/s MV DecT: 222 ms MV A Jose Martin: 0.45 m/s MV E/A Ratio: 1.87 RAP: 5.00 mmHg RVSP: 19.00 mmHg FINDINGS -------- The rhythm appears to be atrial flutter. This was a technically good study. The left ventricular size is normal. There is borderline concentric left ventricular hypertrophy. Overall left ventricular systolic function is normal with, an EF between 60 - 65 %. The right ventricle is normal in size. Normal LA size by volume 22+/-6 ml/m2. The right atrium is normal in size. Interatrial and interventricular septum intact. The aortic valve is trileaflet and appears structurally normal. There is trace to mild mitral regurgitation. Mild tricuspid regurgitation present. Right ventricular systolic pressure is normal at < 35 mmHg. Trace/mild (physiologic) pulmonic regurgitation. The aortic root size is normal. The inferior vena cava is mildly dilated. There is no pericardial effusion. CONCLUSIONS -------- 1. The left ventricular size is normal. 2. There is borderline concentric left ventricular hypertrophy. 3. Overall left ventricular systolic function is normal with, an EF between 60 - 65 %. 4. Mild tricuspid regurgitation present. 5. Trace/mild (physiologic) pulmonic regurgitation. 6. There is no pericardial effusion. CAN DOFFER: Tricia Denton RDCS
--- NOTE | 2019-11-05 12:25 | ECHOT ---
TRANSESOPHAGEAL ECHOCARDIOGRAM DATE OF SERVICE: 11/05/2019 PERFORMING PHYSICIAN: Roney Grossman MD. PROCEDURE PERFORMED: Transesophageal echocardiogram. 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 We tried medical treatment including Cardizem as well as amiodarone and that was unsuccessful. Because of that, a cardioversion was advised. The transesophageal echocardiogram is to rule out any intracardiac thrombus.. COMPLICATION: None. LEVEL OF SEDATION: Deep sedation was performed using propofol with SUPERVISOR LITHARGE in the room. PROCEDURE DESCRIPTION: After obtaining an informed consent, the patient was brought to the recovery area. The patient was turned into left lateral position. A pulse oximetry and heart rate monitors were attached to the patient. Subsequently, the transesophageal echocardiogram was advanced through the bite guard to the mid esophagus where 2D echocardiogram images as well as color Doppler images of various cardiac structures were obtained. Particular attention was made to the left atrial appendage. Subsequently, during the transesophageal echocardiogram, I did 2D echocardiogram images, pulse Doppler images, continuous-wave Doppler images as well. The procedure was completed without any complication. FINDINGS: The left ventricular dimension and systolic function appeared to be within normal limits. The ejection fraction appeared to be within normal limits with EF around 50% to 55%. Right ventricle appeared to be also within normal limits. The left atrium appeared to be mildly dilated. The left atrial appendage appeared to be free from any thrombus. The right atrium and right ventricle appeared to be within normal limits for dimension where the pacer lead was seen. The aortic valve is trileaflet valve without stenosis or regurgitation. The mitral valve seems to be mildly thickened with mild MR. There was mild tricuspid regurgitation seen. CONCLUSION: 1. No evidence of any intracardiac thrombus. 2. Intact left atrial appendage without any evidence of thrombus. 3. Intact interatrial septum without any evidence of shunt. 4. Normal left ventricular dimension and systolic function. 5. Mildly dilated left atrium. 6. Normal right ventricular dimension and systolic function. 7. Trileaflet aortic valve without stenosis or regurgitation. 8. Mildly thickened mitral valve leaflets with mild MR. 9. Normal tricuspid valve and pulmonic valve. 10.A pacer lead was seen in the right ventricle. 11.No evidence of pericardial effusion. MMODL / IJN: [id number] /
--- NOTE | 2019-11-05 12:31 | CE ---
CARDIAC ELECTROPHYSIOLOGY REPORT CARDIOVERSION: DATE OF SERVICE: 11/05/2019 PERFORMING PHYSICIAN: Roney Grossman MD. PROCEDURE PERFORMED: Cardioversion of atrial flutter to normal sinus mechanism. COMPLICATION: None. LEVEL OF SEDATION: Deep sedation was performed using propofol with RECEIVING LEAD in the room. PROCEDURE DESCRIPTION: After intracardiac thrombus was ruled out using transesophageal echocardiogram, we pursue a cardioversion. The patient cardioverted from atrial fibrillation to normal sinus mechanism using 100 joules on first attempt. CONCLUSION: Successful cardioversion of atrial fibrillation to normal sinus mechanism using 100 joules on first attempt. MMODL / IJN: [id number] /
[2019-11-05] MEDS: AMIODARONE 300 MG in DEXTROSE 5% IN WATER 250 ML IV SCH ×2 (17:45)
[2019-11-05] MEDS: SPIRONOLACTONE 25 MG TAB PO SCH (21:18)
[2019-11-05] MEDS: LOSARTAN 25 MG TAB PO SCH (21:19)
[2019-11-05] MEDS: ESTRADIOL TOPICAL SCH (21:19)
[2019-11-05] MEDS: ZOLPIDEM 5 MG TAB PO PRN (21:48)
[2019-11-06] MEDS: AMIODARONE 300 MG in DEXTROSE 5% IN WATER 250 ML IV SCH ×2 (01:12)
[2019-11-06] MEDS: METOPROLOL TARTRATE 25 MG TAB PO SCH (09:59)
[2019-11-06] MEDS: APIXABAN 5 MG TAB PO SCH (09:59)
[2019-11-06 10:15] VITALS: BP 123/81; PULSE 68; RESP 16; TEMP 98.4
--- NOTE | 2019-11-06 11:06 | P.DS ---
Providers Date of admission: 11/03/19 13:00 Expected date of discharge: 11/06/19 Attending physician: Gaurav Kelly Consults: 11/03/19 12:58 Consult Physician Urgent Consulting Provider: [facility] Consult Reason/Comments: A. fib with rapid ventricular response Do you want consulting provider notified?: Yes Primary care physician: Gaurav Kelly [facility] Hospital Course: Final Diagnoses: Atrial fibrillation, flutter with RVR in a patient with history of chronic paroxysmal atrial fibrillation, status post successful cardioversion. Sick sinus syndrome with hx of PPM History of SVT with multiple ablations Hypertension Hyperlipidemia Hospital course:This is a pleasant 39-year-old female with past medical history of sick sinus syndrome, permanent pacemaker implantation, paroxysmal A. fib, multiple cardiac ablations ,hypertension, SVT, presented to the ER with complaints of heart racing, palpitations accompanied by shortness of breath. Denies lightheadedness, dizziness or focal deficits. Denies syncope. Denies nausea vomiting or diarrhea. Denies abdominal pain. Denies any fever or chills. Denies any cough or congestion. Chest x-ray reported no acute cardiopu lmonary process. EKG reported atrial fibrillation with RVR, ST abnormality, heart rate 138. Blood pressure initially 154/114 .Troponins negative 3. Negative for orthostatic hypotension. afebrile, normal WBC. Electrolytes within normal limits. Triglycerides 428, cholesterol 217, HDL 31. Minimally elevated AST, ALT. TSH within normal limits. Placed on heparin and Cardizem drips, cardiology consulted. 11/05/2019 throughout the night and this morning having uncontrolled A- flutter. This morning, A flutter with heart rate in the 140s, received Lopressor IV push, bolused with amiodarone, developed chest pain with shortness of breath and amiodarone drip discontinued. Scheduled for cardioversion and FRANCIS this morning. Status post successful cardioversion. FRANCIS reported no evidence of thrombus, shunt or pericardial effusion. Normal left ventricular systolic function, EF around 50-55%, mild mitral regurgitation. Significant clinical improvement. Patient will be discharged home today pending final DC recommendations and clearance from cardiology. The impression and plan of care has been dictated as directed. : I performed a history and examination of this patient, discussed the same with the dictator. I agree with the dictator's note ,documented as a scribe. Any additional findings or plans will be noted. Patient Condition at Discharge: Stable Plan - Discharge Summary Discharge Rx Participant: No New Discharge Prescriptions: New Apixaban [Eliquis] 5 mg PO BID #60 tab Metoprolol Tartrate [Lopressor] 25 mg PO BID #60 tab Omeprazole 40 mg PO DAILY #30 capsule.dr Lew Zolpidem [Ambien] 10 mg PO HS PRN PRN Reason: Insomnia Spironolactone 50 mg PO HS Multivitamins, Thera [Multivitamin (formulary)] 1 tab PO HS Cholecalciferol [Vitamin D3 (25 Mcg = 1000 Iu)] 1,000 unit PO HS Aspirin EC [Ecotrin Low Dose] 81 mg PO HS estradioL [Divigel] 1 packet TRANSDERM HS Losartan [Cozaar] 50 mg PO HS Discharge Medication List Aspirin EC [Ecotrin Low Dose] 81 mg PO HS 11/03/19 [History] Cholecalciferol [Vitamin D3 (25 Mcg = 1000 Iu)] 1,000 unit PO HS 11/03/19 [History] Losartan [Cozaar] 50 mg PO HS 11/03/19 [History] Multivitamins, Thera [Multivitamin (formulary)] 1 tab PO HS 11/03/19 [History] Spironolactone 50 mg PO HS 11/03/19 [History] Zolpidem [Ambien] 10 mg PO HS PRN 11/03/19 [History] estradioL [Divigel] 1 packet TRANSDERM HS 11/03/19 [History] Apixaban [Eliquis] 5 mg PO BID #60 tab 11/06/19 [Rx] Metoprolol Tartrate [Lopressor] 25 mg PO BID #60 tab 11/06/19 [Rx] Omeprazole 40 mg PO DAILY #30 capsule. 11/06/19 [Rx] Follow up Appointment(s)/Referral(s): Gaurav Kelly DO [Primary Care Provider] - 11/10/19 10:00 am Dianne Sheth DO [Doctor of Osteopathic Medicine] - 11/19/19 8:00 am ([facility]) Ambulatory/Diagnostic Orders: Complete Blood Count w/diff [LAB.AMB] Time Frame: 3 Days, Location: None Selected Patient Instructions/Handouts: A-fib (Atrial Fibrillation) (DC), Transeso phageal Echocardiogram (DC), Heart Healthy Diet (DC) Activity/Diet/Wound Care/Special Instructions: Pending final DC recommendations, clearance and follow-up appointment per cardiology. Off work until Saturday.
--- NOTE | 2019-11-06 12:03 | P.PN ---
Subjective Progress Note Date: 11/06/19 This is a pleasant 39-year-old female with documented history of SVT with prior ablation 3, pacemaker implantation for sick sinus syndrome, hypertension, paroxysmal atrial fibrillation. She presents to the hospital on this occasion with symptoms of chest pressure and a pressure and discomfort between her scapula area with associated heart racing. She also states that she felt quite short of breath. Chest x-ray on presentation here did not reveal any acute process. Her EKG showed atrial fibrillation with a rapid ventricular response. This morning's EKG shows A. fib/flutter with mildly rapid ventricular response. Blood pressure 112/70 with a heart rate low 100s, white blood cell count 9.2, hemoglobin 15.2, platelet count 277. Sodium 140, potassium 4.2, BUN 11, creatinine 0.7. Troponins 0.0123 cholesterol 217 triglycerides 428 HDL 31 LDL not calculable TSH is 2.2. Patient's home medications include estradiol, Cozaar,, and Aldactone. According to the patient, she had a Holter monitor performed at her physician's office and at that time was told to have paroxysmal episodes of atrial fibrillation. She is not currently on anticoagulation. Her CHADSVASC score is 2. I did have a lengthy discussion with the patient this morning regarding anticoagulation for stroke prevention although her score is two on the chadsvasc. Our recommendation is to initiate anticoagulation at this time. We will also obtain an echocardiogram with Doppler study, discontinue the IV Cardizem and start the patient on oral calcium channel chino. Patient also states that she had a stress test within the past one year which we will obtained from her doctor's office. Pacemaker was interrogated, showed several episodes of rapid atrial fibrillation, it also shows several times where mode switching with attempt to override the rapid heart beat was also documented. 11/06/2019 Patient underwent FRANCIS with subsequent elective cardioversion yesterday, converted to normal sinus rhythm and remains in a normal sinus rhythm this morning. She was seen and examined, feels considerably better overall. Blood pressure 112/70 with a heart rate in the 60s. We will increase her dose of beta chino to a 3 times a day dosing. From our perspective she may be able to be discharged home today. She has been advised to follow-up with her ludlow machine operator in the next week or so Objective - Vital Signs Vital signs: Vital Signs Temp 98.4 F 11/06/19 08:00 Pulse 68 11/06/19 08:00 Resp 16 11/06/19 08:00 BP 123/81 11/06/19 08:00 Pulse Ox 97 11/06/19 08:00 Intake & Output 11/05/19 11/06/19 11/06/19 18:59 06:59 18:59 Intake Total 150 360 Output Total 500 Balance 150 -140 Weight 93.2 kg Intake: IV 150 Oral 360 Output: Urine 500 Other: Voiding Method Toilet Toilet # Voids 2 - Exam PHYSICAL EXAMINATION: GENERAL: 39-year-old female in no acute distress at the time of my examination HEENT: Head is atraumatic, normocephalic. Pupils equal, round. Sclera anicteric. Conjunctiva are clear. Mucous membranes of the mouth are moist. Neck is supple. There is no elevated jugular venous pressure. No carotid bruit is heard. HEART EXAMINATION: Heart S1, S2 normal . No murmur or gallop heard. CHEST EXAMINATION: Lungs are clear to auscultation and precussion. No chest wall tenderness is noted on palpation or with deep breathing. ABDOMEN: Soft, nontender. Bowel sounds are heard. No organomegaly noted. EXTREMITIES: 2+ peripheral pulses with no evidence of peripheral edema and no calf tenderness noted. NEUROLOGIC patient is awake, alert and oriented 3 . - Labs CBC & Chem 7: 11/05/19 07:24 11/05/19 07:24 Assessment and Plan Plan: Assessment and plan #1 atrial fibrillation with rapid ventricular response, paroxysmal, status post FRANCIS and cardioversion, patient currently in normal sinus rhythm #2 hypertension #3 hyperlipidemia, untreated #4 history of SVT with prior ablation procedure 3 #5 history of permanent pacemaker implantation for sick sinus syndrome Plan From cardiology's perspective, patient may be able to be discharged home today. We will increase her beta chino to a 3 times a day dose. She's been instructed to continue the rest of her medications including Aldactone, angiot ensin chino, and Eliquis. She will follow-up with Dr.Joan Sheth, her ludlow machine operator as an outpatient. DNP note has been reviewed, I agree with a documented findings and plan of care. Patient was seen and examined.
[2019-11-06] MEDS ORDERED: METOPROLOL TARTRATE 25 MG TAB PO SCH (16:00)
== END 2019-11-06 11:42 | disposition home or self-care (01) | DRG 310 ==
LOC: EC 09:20 → 3SCARD 13:00
PROVIDERS: ADMIT Family Medicine; ATTEND Family Medicine
PROC: 5A2204Z Restoration of Cardiac Rhythm, Single (ICD-10-PCS; principal; 2019-11-05 11:20)
PROC: 4B02XSZ Measurement of Cardiac Pacemaker, External Approach (ICD-10-PCS; principal; 2019-11-05 11:20)
DX: I48.0 Paroxysmal atrial fibrillation (principal); E78.5 Hyperlipidemia, unspecified; I49.5 Sick sinus syndrome; I10 Essential (primary) hypertension; I48.92 Unspecified atrial flutter; I34.0 Nonrheumatic mitral (valve) insufficiency; Z95.0 Presence of cardiac pacemaker; Z79.82 Long term (current) use of aspirin; Z79.899 Other long term (current) drug therapy; Z91.041 Radiographic dye allergy status; Z90.49 Acquired absence of other specified parts of digestive tract; Z90.710 Acquired absence of both cervix and uterus; Z82.49 Family history of ischemic heart disease and other diseases of the circulatory system; Z83.3 Family history of diabetes mellitus; Z84.1 Family history of disorders of kidney and ureter; Z83.2 Family history of diseases of the blood and blood-forming organs and certain disorders involving the immune mechanism
CPT/HCPCS: 36415; 71046; 80048; 80053; 80061; 83735; 84443; 84484; 85025; 85610; 85730; 92960; 93005; 93306; 93312; 93320; 93325; 96360; 96365; 96366; 96375; 96376; 99291

== ENCOUNTER → 2023-01-23 | Outpatient (CLI) | payer BC ==
--- NOTE | 2023-01-30 12:31 | US ---
EXAMINATION TYPE: US carotid duplex BILAT DATE OF EXAM: 01/23/2023 COMPARISON: NONE CLINICAL INDICATION: Female, 42 years old with history of S06.9X9A LOSS OF CONSCIOUS; Patient states having pacemaker replaced and could not wake up from anesthesia. HTN controlled with meds. TECHNIQUE: Carotid duplex ultrasound examination. Indirect Doppler criteria was utilized. FINDINGS: EXAM MEASUREMENTS: RIGHT: Peak Systolic Velocity (PSV) cm/sec ----- Right CCA: 82.0 ----- Right ICA: 72.1 ----- Right ECA: 76.4 ICA/CCA ratio: 0.9 RIGHT: End Diastole cm/sec ----- Right CCA: 29.2 ----- Right ICA: 33.7 ----- Right ECA: 16.2 LEFT: Peak Systolic Velocity (PSV) cm/sec ----- Left CCA: 76.4 ----- Left ICA: 79.0 ----- Left ECA: 68.8 ICA/CCA ratio: 1.0 LEFT: End Diastole cm/sec ----- Left CCA: 25.0 ----- Left ICA: 31.1 ----- Left ECA: 13.6 VERTEBRALS (direction of flow): Right Vertebral: Antegrade Left Vertebral: Antegrade Rhythm: Normal GEOTHERMAL HEAT PUMP MACHINIST NOTES: No elevated velocities or significant stenosis. No plaque or wall thickening. Incidental finding: Left neck prominent lymph node with short axis measurement = 1.2 cm and cortic al thickness= 5.2 mm. IMPRESSION: No evidence for hemodynamically significant stenosis Criteria for Assigning % of Stenosis / Diameter reduction (Estimation based on the indirect measurements of the internal carotid artery velocities (ICA PSV). 1. Normal (no stenosis)=ICA PSV < 125 cm/s: ratio < 2.0: ICA EDV<40 cm/s. 2. Less than 50% stenosis=ICA PSV < 125 cm/s: ratio < 2.0: ICA EDV<40 cm/s. 3. 50 to 69% stenosis=ICA PSV of 125 to 230 cm/s: ration 2.0 ? 4.0: ICA EDV 40-100 cm/s. 4. Greater than 70% stenosis to near occlusion= ICA PSV > 230 cm/s: ratio > 4.0: ICA EDV > 100 cm/s. 5. Near occlusion= ICA PSV velocities may be low or undetectable: variable ratio and ICA EDV. 6. Total occlusion=unable to detect flow.
== END | disposition home or self-care (01) ==
LOC: RADUSWWP 16:51
PROVIDERS: ATTEND Family Medicine
DX: S06.9X9A Unspecified intracranial injury with loss of consciousness of unspecified duration, initial encounter (principal); X58.XXXA Exposure to other specified factors, initial encounter; I10 Essential (primary) hypertension
CPT/HCPCS: 93880